=== PATIENT | female | born 1995 | race Two or more races ===

== ENCOUNTER 2016-06-21 14:40 | Inpatient (IN) | payer MEDICAID ==
[2016-06-21] MEDS ORDERED: OXYTOCIN IN LR 500 ML IV ONE (15:31)
[2016-06-21] MEDS ORDERED: MINERAL OIL 25 ML BOT ONE (15:38)
[2016-06-21] MEDS ORDERED: OXYTOCIN 10 UNITS/ML VIAL ONE (15:38)
[2016-06-21] MEDS ORDERED: LIDOCAINE 1% (PRES FREE) 30 ML VIAL ONE (15:38)
[2016-06-21] MEDS ORDERED: IV START KIT ONE (15:39)
[2016-06-21] MEDS ORDERED: LIDOCAINE Viscous 2% 15 ML UDCUP ONE (15:39)
[2016-06-21] MEDS ORDERED: PUMP TUBING ONE (15:39)
[2016-06-21] MEDS ORDERED: LACTATED RINGERS 0 ML ONE (15:39)
[2016-06-21 15:58] VITALS: BMI 26.6
[2016-06-21 16:14] LABS: HEMOGLOBIN 13.3 gm/l (12.0-16.0); MEAN CELL VOLUME 88.6 fl (81.0-99.0); MEAN CORPUSCULAR HEMOGLOBIN 30.2 pg (27.0-31.0); MEAN CORPUSCULAR HGB CONC 34.1 g/dl (33.0-37.0); RED CELL DISTRIBUTION WIDTH 12.5 % (11.5-14.5)
[2016-06-21] MEDS ORDERED: LIDOCAINE 1% (PRES FREE) 30 ML VIAL SUB-Q ONE (17:05)
[2016-06-21] MEDS ORDERED: LANOLIN 50 APPLIC/7G TUBE TP PRN (17:55)
[2016-06-21] MEDS ORDERED: CALCIUM CARBONATE 500 MG TAB.CHEW PO PRN (17:55)
[2016-06-21] MEDS ORDERED: BENZOCAINE/MENTHOL 60 APPLIC/BOT TP PRN (17:55)
[2016-06-21] MEDS ORDERED: MAGNESIUM HYDROXIDE 30 ML UDCUP PO PRN (17:55)
[2016-06-21] MEDS ORDERED: DOCUSATE SODIUM 100 MG CAPSULE PO PRN (17:55)
[2016-06-21] MEDS ORDERED: HYDROCODONE/ACETAMINOPHEN 5/325MG TABLET PO PRN (17:55)
--- NOTE | 2016-06-21 18:03 | PCMAN ---
OB Admission Note - History : 2 Term: 1 : 0 Abortions (S&E): 0 Livin Gestational Age (weeks): 39 Days (#/7): 4 Admit Cervical Dilation:: 7 Admit Cervical Effacement (%):: 100 Admit Station:: -2 Membrane Status: Intact Rupture (Date): 06/21/16 Rupture (Time): 16:07 Labor Onset (Date): 06/21/16 Labor Onset (Time): 12:00 Contractions: Yes Contraction Frequency:: 2-3 Heart Rate:: 130 Status:: cat 1 Summary of Course:: uncomplicated, presented after coming from [place]. - Labs Blood Type: O (+) positive Rubella Status: Immune GBS Status: Negative Abnormal Labs: None, Chlamydia Positive (JULIANA neg.) - Review of Systems Pt. was in active labor so limited ROS. No f/c/cough or flu like symptoms. - Physical Exam General: Acute Distress (with UC's) Psych/Mental Status: Mood/Affect Appropriate Abdomen: Other (Gravid, EFW 7#) Genitourinary: Normal Female Genitalia Extremities: No Edema Skin: Warm, Dry, No Rash - Problems (1) Normal labor Status: Acute Code: [id number]/Plan: Presented in active labor, progressed quickly to . See delivery note.
--- NOTE | 2016-06-21 18:07 | PCMDEL ---
Delivery Note - Labor 1st stage (hr/min):: 4hr 14 min 2nd stage (hr/min):: 10 min 3rd stage (hr/min):: 9 min Total (hr/min):: 4hr 33 min Pushed (hr/min):: 10 min - Delivery Delivery (Date): 06/21/16 Delivery (Time): 16:24 Infant Gender: Male Presentation: Cephalic Position: OA Umbilical Cord: 3 Vessel Delayed Cord Clamping:: 2-3 min Placenta:: wnl EBL:: 350 Perineum:: R vaginal, L periurethral, L labial. Suture:: R vaginal repaired in usual fashion. second degree with 3-0 vicryl. L periurethral repaired in usual fashion with 4-0 vicryl. L labial also repaired in usual fashion with 4-0 vicryl. Anesthesia/Meds:: lidocaine-local Length ROM:: 17 min Comments:: Rapid labor and delivery. Perineum with complex repair but only 2nd degree on r labia/vaginal area. Pt tolerated well with local anesthesia. Vigorous male.
[2016-06-21] MEDS: IBUPROFEN 600 MG TABLET PO PRN (20:45)
[2016-06-22] MEDS: IBUPROFEN 600 MG TABLET PO PRN ×2 (04:22→18:25)
[2016-06-22 06:37] LABS: HEMATOCRIT 31.1 % (37.0-47.0); HEMOGLOBIN 10.7 gm/l (12.0-16.0)
--- NOTE | 2016-06-22 09:28 | PDOC44 ---
- Subjective Day: 1 Reports Pain Tolerable - Objective Temp Pulse Resp BP Pulse Ox 98.0 F 65 16 88/50 06/22/16 07:57 06/22/16 07:57 06/22/16 07:57 06/22/16 07:57 Lab Results 06/22/16 06/21/16 06:10 15:56 WBC 12.0 H RBC 4.40 Hgb 10.7 L D 13.3 Hct 31.1 L 39.0 Plt Count 153 Current Medications Generic Name Dose Route Start Last Admin Trade Name Freq PRN Reason Stop Dose Admin Acetaminophen/Hydrocodone Bitart 1 - 2 tab 06/21/16 17:55 [place] 5/325 PO Q4H PRN Pain (Moderate) Benzocaine/Menthol 1 applic 06/21/16 17:55 06/21/16 20:44 Dermoplast TP 1 bot PRN PRN Administration Patient Comfort Calcium Carbonate/Glycine 500 - 1,000 mg 06/21/16 17:55 Tums PO BID PRN Indigestion Docusate Sodium 100 mg 06/21/16 17:55 Colace PO DAILY PRN Comfort Emollient Ointment 1 applic 06/21/16 17:55 [id number] TP PRN PRN sore nipples Ibuprofen 600 mg 06/21/16 17:55 06/22/16 04:22 Motrin PO 600 mg Q6H PRN Administration Pain (Mild) Magnesium Hydroxide 30 ml 06/21/16 17:55 Milk Of Magnesia PO BEDTIME PRN Constipation Sodium Chloride 10 ml 06/21/16 15:31 Normal Saline 10ml Flush IV PRN PRN IV Flush Sodium Chloride 10 ml 06/21/16 17:00 06/22/16 04:29 Normal Saline 10ml Flush IV Not Given Q8HR [facility] - Physical Exam General: Afebrile Psych/Mental Status: Bonding Well Neurological: Oriented x 4 Lungs: Clear to Auscultation Bilaterally Cardiovascular: Regular Rate and Rhythm Fundus: Firm, Below Umbilicus - Problems:Assessment/Plan (1) Vaginal delivery Status: AcuteAssessment/Plan: Doing well Normal exam Encourage Disposition: Stable, Anticipate DC Home Tomorrow
[2016-06-23] MEDS: IBUPROFEN 600 MG TABLET PO PRN (09:00)
[2016-06-23 09:18] VITALS: BP 112/81
--- NOTE | 2016-06-23 11:41 | PDOC44 ---
- Subjective Day: 2 Reports Pain Tolerable, Reports , Reports Lochia Light, Reports Tolerating Regular Diet, Denies Nausea - Objective Temp Pulse Resp BP Pulse Ox 98.4 F 103 18 112/81 06/23/16 08:45 06/23/16 08:45 06/23/16 08:45 06/23/16 08:45 Current Medications Generic Name Dose Route Start Last Admin Trade Name Freq PRN Reason Stop Dose Admin Acetaminophen/Hydrocodone Bitart 1 - 2 tab 06/21/16 17:55 [place] 5/325 PO Q4H PRN Pain (Moderate) Benzocaine/Menthol 1 applic 06/21/16 17:55 06/21/16 20:44 Dermoplast TP 1 bot PRN PRN Administration Patient Comfort Calcium Carbonate/Glycine 500 - 1,000 mg 06/21/16 17:55 Tums PO BID PRN Indigestion Docusate Sodium 100 mg 06/21/16 17:55 06/23/16 09:00 Colace PO 100 mg DAILY PRN Administration Comfort Emollient Ointment 1 applic 06/21/16 17:55 [id number] TP PRN PRN sore nipples Ibuprofen 600 mg 06/21/16 17:55 06/23/16 09:00 Motrin PO 600 mg Q6H PRN Administration Pain (Mild) Magnesium Hydroxide 30 ml 06/21/16 17:55 Milk Of Magnesia PO BEDTIME PRN Constipation Sodium Chloride 10 ml 06/21/16 15:31 Normal Saline 10ml Flush IV PRN PRN IV Flush Sodium Chloride 10 ml 06/21/16 17:00 06/23/16 07:17 Normal Saline 10ml Flush IV Not Given Q8HR SUE - Physical Exam General: Afebrile Psych/Mental Status: Mood/Affect Appropriate, Judgment/Insight Intact, Bonding Well Neurological: Grossly Intact, Alert, Normal Reflexes HEENT: EOMI Lungs: Clear to Auscultation Bilaterally, Normal Air Movement Cardiovascular: Regular Rate and Rhythm, Normal S2, No Murmur Breast: Soft Fundus: Firm, Midline, Below Umbilicus 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
== END 2016-06-23 12:18 | disposition home or self-care (01) | DRG 775 ==
LOC: FBCOUT 14:40 → FBC 14:40 → FBCOUT 15:13 → FBC 15:13
PROVIDERS: ADMIT Family Medicine; ATTEND Family Medicine
PROC: 10E0XZZ Delivery of Products of Conception, External Approach (ICD-10-PCS; principal; 2016-06-21)
PROC: 0HQ9XZZ Repair Perineum Skin, External Approach (ICD-10-PCS; 2016-06-21)
DX: O70.0 First degree perineal laceration during delivery (principal); Z3A.39 39 weeks gestation of pregnancy; Z37.0 Single live birth